=== PATIENT | male | born 1990 | race Caucasian/White ===

== ENCOUNTER 2021-03-30 11:21 | Inpatient (IN) | payer OTHER ==
[2021-03-30 12:13] LABS: Basophils # (A) 0.1 k/uL (0-0.2); Basophils % (A) 1 %; Eosinophils # (A) 0.4 k/uL (0-0.7); Eosinophils % (A) 3 %; HCT 45.5 % (39.0-53.0); HGB 16.2 gm/dL (13.0-17.5); Lymphocytes # (A) 2.3 k/uL (1.0-4.8); Lymphocytes % (A) 17 %; MCH 28.8 pg (25.0-35.0); MCHC 35.7 g/dL (31.0-37.0); MCV 80.7 fL (80.0-100.0); Mean Platelet Volume 7.2; Monocytes # (A) 0.6 k/uL (0-1.0); Monocytes % (A) 5 %; Neutrophils # (A) 10.4 k/uL (1.3-7.7); Neutrophils % (A) 75 %; Platelet Count 226 k/uL (150-450); RBC 5.63 m/uL (4.30-5.90); WBC 13.9 k/uL (3.8-10.6)
[2021-03-30 12:22] LABS: ALT 49 U/L (4-49); AST 37 U/L (17-59); African American GFR (CKD) >90 (>60 ml/min/1.73 sqM); Albumin 4.9 g/dL (3.5-5.0); Alkaline Phosphatase 71 U/L (38-126); Amylase 51 U/L (30-110); Anion Gap 9 mmol/L; Blood Urea Nitrogen 20 mg/dL (9-20); Calcium 9.7 mg/dL (8.4-10.2); Carbon Dioxide 25 mmol/L (22-30); Chloride 105 mmol/L (98-107); Glucose 107 mg/dL (74-99); Lipase 39 U/L (23-300); Non-African American GFR(CKD) >90 (>60 ml/min/1.73 sqM); Potassium 4.4 mmol/L (3.5-5.1); Sodium 139 mmol/L (137-145); Total Bilirubin 0.7 mg/dL (0.2-1.3); Total Protein 8.1 g/dL (6.3-8.2)
[2021-03-30 12:26] LABS: Amorphous Sediment,Urine Occasional /hpf; Appearance,Urine Cloudy (Clear); Bilirubin,Urine Negative (Negative); Blood,Urine Trace (Negative); Color,Urine Yellow; Glucose,Urine (UA) Negative (Negative); Ketones,Urine Negative (Negative); Leukocyte Esterase,Urine Negative (Negative); Mucus,Urine Moderate /hpf; Nitrite,Urine Negative (Negative); PH, Urine 5.5 (5.0-8.0); Protein,Urine 1+ (Negative); RBC,Urine 1 /hpf (0-5); Specific Gravity,Urine 1.043 (1.001-1.035); Squamous Epithelial Cell,Urine <1 /hpf (0-4); Urobilinogen,Urine <2.0 mg/dL (<2.0); WBC,Urine 2 /hpf (0-5)
[2021-03-30] MEDS ORDERED: SODIUM CHLORIDE 0.9% 1,000 ML IV STA (12:41)
[2021-03-30] MEDS ORDERED: KETOROLAC 15 MG/ML 1 ML VIAL IVP STA (12:42)
[2021-03-30] MEDS ORDERED: ONDANSETRON 4 MG/2 ML VIAL IVP STA (12:42)
--- NOTE | 2021-03-30 13:21 | CT ---
EXAMINATION TYPE: CT abdomen pelvis w con DATE OF EXAM: 03/30/2021 COMPARISON: None HISTORY: Right lower quadrant pain with nausea and vomiting. CT DLP: 1511.2 mGycm, Automated Exposure Control for Dose Reduction was Utilized. CONTRAST: CT scan of the abdomen and pelvis is performed without oral and with IV Contrast, patient injected wi th 100 mL of Isovue 300. FINDINGS: LUNG BASES: No significant abnormality is appreciated. LIVER/GB: No significant abnormality is appreciated. PANCREAS: No significant abnormality is seen. SPLEEN: No significant abnormality is seen. ADRENALS: No significant abnormality is seen. KIDNEYS: Symmetric cortical medullary uptake and excretion without hydronephrosis seen bilaterally. BOWEL: Terminal ileum identified near coronal image 40 appears within normal limits. There is appendi colith at base of cecum axial image 44. Appendix extends posteriorly and inferiorly and is abnormally dilated up to 16 mm axial image 47 with mild to moderate ill-defined fluid and fat stranding. Smalle r appendicolith near the tip is present coronal image 53. No adjacent free air. No well-formed fluid collection or abscess. PROSTATE/SEMINAL VESICLES: No gross abnormality seen. LYMPH NODES: No greater than 1cm abdominal or pelvic lymph nodes are appreciated. OSSEOUS STRUCTURES: Slight underlying levoconvex scoliotic curvature centered at L3 level. Mild facet arthropathy lower lumbar spine. OTHER: Tiny fat-containing umbilical hernia . IMPRESSION: CT findings consistent with a mild to moderate uncomplicated acute appendicitis as detail ed above. Findings discussed with the ordering emergency room physician diet assistant via telephone at time of dict ation.
[2021-03-30] MEDS ORDERED: NALOXONE 0.4 MG/ML 1 ML VIAL IV PRN (13:33)
[2021-03-30] MEDS ORDERED: PIPERACILLIN-TAZOBACTAM 3.375 GM in SODIUM CHLORIDE 0.9% 100 ML IVPB STA (13:34)
--- NOTE | 2021-03-30 13:38 | ED ---
Abdominal Pain HPI - General Chief Complaint: Abdominal Pain Stated Complaint: rt sided pain Time Seen by Provider: 03/30/21 12:28 Source: patient Mode of arrival: ambulatory Limitations: no limitations - History of Present Illness Initial Comments: Patient is a 30-year-old male presenting to the emergency Department with complaints of worsening abdominal pain since yesterday. He states he's had a few episodes of vomiting as well. He describes the pain as mostly in the right side of his abdomen, seems to be fairly consistent. He has never had pain like this before. Denies history of kidney stones, no hematuria. He denies any fevers or chills, no diarrhea, regular bowel movements. He denies any previous abdominal surgeries. He denies taking any medications. He is an occasional marijuana smoker, occasional alcohol drinker. He has no further complaints at this time. Upon arrival to the ER, his vitals are stable. - Related Data Home Medications Medication Instructions Recorded Confirmed Acetaminophen [Tylenol] 1,000 mg PO ONCE PRN 03/30/21 03/30/21 Cpm/PE/Dm/Acetaminophen/Guaifn 1 tab PO ONCE PRN 03/30/21 03/30/21 [Tylenol Cold-Flu Day-Nt Caplet] Allergies Allergy/AdvReac Type Severity Reaction Status Date / Time No Known Allergies Allergy Verified 03/30/21 13:30 Review of Systems ROS Statement: Those systems with pertinent positive or pertinent negative responses have been documented in the HPI. ROS Other: All systems not noted in ROS Statement are negative. Past Medical History Past Medical History: No Reported History History of Any Multi-Drug Resistant Organisms: None Reported Past Surgical History: No Surgical Hx Reported Past Psychological History: No Psychological Hx Reported Smoking Status: Never smoker Past Alcohol Use History: Occasional Past Drug Use History: Marijuana General Exam - General Exam Comments Initial Comments: GENERAL: Patient is well-developed and well-nourished. Patient is nontoxic and in no acute distress. HEAD: Atraumatic, normocephalic. EYES: Pupils equal round and reactive to light, extraocular movements intact, sclera anicteric, conjunctiva are normal. Eyelids were unremarkable. ENT: TMs normal, nares patent, oropharynx clear without exudates. Moist mucous membranes. NECK: Normal range of motion, supple without lymphadenopathy or JVD. LUNGS: Unlabored respirations. Breath sounds clear to auscultation bilaterally and equal. No wheezes rales or rhonchi. HEART: Regular rate and rhythm without murmurs, rubs or gallops. ABDOMEN: Soft, tender to palpation of the right side of the abdomen, right lower quadrant, normoactive bowel sounds. No guarding, no rebound. No masses appreciated. : Deferred MUSCULOSKELETAL: Normal extremities with adequate strength and normal range of motion, no pitting or edema. No clubbing or cyanosis. NEUROLOGICAL: Patient is alert and oriented x 3. Motor and sensory are also intact. Cranial nerves II through XII grossly intact. Symmetrical smile. Normal speech, normal gait. PSYCH: Normal mood, normal affect. SKIN: Warm, Dry, normal turgor, no rashes or lesions noted. Limitations: no limitations Course Vital Signs 03/30/21 03/30/21 03/30/21 11:30 12:51 14:08 Temperature 97.9 F 98.4 F Pulse Rate 70 60 64 Respiratory 18 18 18 Rate Blood Pressure 145/88 154/94 132/83 O2 Sat by Pulse 99 100 100 Oximetry Medical Decision Making - Medical Decision Making Patient is a 30-year-old male here for right-sided abdominal pain 2 days as well as nausea and vomiting. No fevers, his vital signs are stable upon arrival. He is tender in the right side of the abdomen, right lower quadrant. Patient's labs show a white count of 13.9, rest of labs are normal. Urine shows no evidence of infection. CT of the abdomen shows findings consistent with mild to moderate uncomplicated acute appendicitis. Patient received fluids, Toradol and Zofran, he is comfortable at this time. I discussed these findings with the patient. Patient will be started on antibiotics. Patient accepted by Dr. Mack. Patient last ate some oatmeal at approximately 8:30 this morning, n othing else to eat or drink today. Case discussed with Dr. Da Silva. - Lab Data Result diagrams: 03/30/21 11:47 03/30/21 11:47 Lab Results 03/30/21 03/30/21 03/30/21 Range/Units 11:47 11:47 11:47 WBC 13.9 H (3.8-10.6) k/uL RBC 5.63 (4.30-5.90) m/uL Hgb 16.2 (13.0-17.5) gm/dL Hct 45.5 (39.0-53.0) % MCV 80.7 (80.0-100.0) fL MCH 28.8 (25.0-35.0) pg MCHC 35.7 (31.0-37.0) g/dL RDW 13.0 (11.5-15.5) % Plt Count 226 (150-450) k/uL MPV 7.2 Neutrophils % 75 % Lymphocytes % 17 % Monocytes % 5 % Eosinophils % 3 % Basophils % 1 % Neutrophils # 10.4 H (1.3-7.7) k/uL Lymphocytes # 2.3 (1.0-4.8) k/uL Monocytes # 0.6 (0-1.0) k/uL Eosinophils # 0.4 (0-0.7) k/uL Basophils # 0.1 (0-0.2) k/uL Sodium 139 (137-145) mmol/L Potassium 4.4 (3.5-5.1) mmol/L Chloride 105 (98-107) mmol/L Carbon Dioxide 25 (22-30) mmol/L Anion Gap 9 mmol/L BUN 20 (9-20) mg/dL Creatinine 0.77 (0.66-1.25) mg/dL Est GFR (CKD-EPI)AfAm >90 (>60 ml/min/1.73 sqM) Est GFR (CKD-EPI)NonAf >90 (>60 ml/min/1.73 sqM) Glucose 107 H (74-99) mg/dL Calcium 9.7 (8.4-10.2) mg/dL Total Bilirubin 0.7 (0.2-1.3) mg/dL AST 37 (17-59) U/L ALT 49 (4-49) U/L Alkaline Phosphatase 71 (38-126) U/L Total Protein 8.1 (6.3-8.2) g/dL Albumin 4.9 (3.5-5.0) g/dL Amylase 51 (30-110) U/L Lipase 39 (23-300) U/L Urine Color Yellow Urine Appearance Cloudy (Clear) Urine pH 5.5 (5.0-8.0) Ur Specific [place] 1.043 H (1.001-1.035) Urine Protein 1+ H (Negative) Urine Glucose (UA) Negative (Negative) Urine Ketones Negative (Negative) Urine Blood Trace H (Negative) Urine Nitrite Negative (Negative) Urine Bilirubin Negative (Negative) Urine Urobilinogen <2.0 (<2.0) mg/dL Ur Leukocyte Esterase Negative (Negative) Urine RBC 1 (0-5) /hpf Urine WBC 2 (0-5) /hpf Ur Squamous Epith Cells <1 (0-4) /hpf Amorphous Sediment Occasional H (None) /hpf Urine Mucus Moderate H (None) /hpf Disposition Clinical Impression: Acute appendicitis Disposition: ADMITTED IP TO THIS HOSP Condition: Stable Decision Date: 03/30/21 Decision Time: 13:38
--- NOTE | 2021-03-30 13:56 | P.GSHP ---
History of Present Illness H&P Date: 03/30/21 CHIEF COMPLAINT: Abdominal pain HISTORY OF PRESENT ILLNESS: This is a 30-year-old male with no severe past medical history. He presents to the hospital with complaints of abdominal pain that started yesterday. Patient reports that his pain was throughout the abdomen but more severe in the right lower quadrant. He had 2 episodes of vomiting. Denies any change in bowel habits or urinary symptoms. Denies any fever, chills or sweats. He had computed tomography scan abdomen and pelvis with findings consistent of mild to moderate uncomplicated acute appendicitis. White count elevated at 13.9. Patient given a dose of IV Zosyn in ER. PAST MEDICAL HISTORY: See list. PAST SURGICAL HISTORY: See list. MEDICATIONS: See list. ALLERGIES: See list. SOCIAL HISTORY: No illicit drug use. REVIEW OF SYSTEMS: CONSTITUTIONAL: Denies fever or chills. HEENT: Denies blurred vision, vision changes, or eye pain. Denies hemoptysis CARDIOVASCULAR: Denies chest pain or pressure. RESPIRATORY: No shortness of breath. GASTROINTESTINAL: See HPI for pertinent findings HEMATOLOGIC: Denies bleeding disorders. GENITOURINARY: Denies any blood in urine or increased urinary frequency. SKIN: Denies pruitis. Denies rash. PHYSICAL EXAM: VITAL SIGNS: Reviewed GENERAL: Well-developed in no acute distress. HEENT: No sclera icterus. Extraocular movements grossly intact. Moist buccal mucosa. Head is atraumatic, normocephalic. No nasal drainage. ABDOMEN: Soft. Nondistended. Right lower quadrant tenderness with palpation NEUROLOGIC: Alert and oriented. Cranial nerves II through XII grossly intact. LABORATORY DATA: WBC 13.9 hemoglobin 16.2 platelets 226 creatinine 0.77 LFTs normal lipase normal UA no evidence of infection IMAGING: computed tomography scan abdomen and pelvis with findings consistent of mild to moderate uncomplicated acute appendicitis. ASSESSMENT: 1. Acute appendicitis PLAN: -Patient scheduled for laparoscopic appendectomy today with Dr. Mack -Keep patient nothing by mouth -Continue pain medication as needed -Continue Zofran as needed -Continue IV fluids Physician Integration Technician note has been reviewed by physician. Signing provider agrees with the documented findings, assessment, and plan of care. Past Medical History Past Medical History: No Reported History History of Any Multi-Drug Resistant Organisms: None Reported Past Surgical History: No Surgical Hx Reported Past Psychological History: No Psychological Hx Reported Smoking Status: Never smoker Past Alcohol Use History: Occasional Past Drug Use History: Marijuana Medications and Allergies Home Medications Medication Instructions Recorded Confirmed Type Acetaminophen [Tylenol] 1,000 mg PO ONCE PRN 03/30/21 03/30/21 History Cpm/PE/Dm/Acetaminophen/Guaifn 1 tab PO ONCE PRN 03/30/21 03/30/21 History [Tylenol Cold-Flu Day-Nt Caplet] Allergies Allergy/AdvReac Type Severity Reaction Status Date / Time No Known Allergies Allergy Verified 03/30/21 13:30 Surgical - Exam Vital Signs Temp Pulse Resp BP Pulse Ox 97.9 F 70 18 145/88 99 03/30/21 11:30 03/30/21 11:30 03/30/21 11:30 03/30/21 11:30 03/30/21 11:30 Results - Labs 03/30/21 11:47 03/30/21 11:47 Abnormal Lab Results - Last 24 Hours (Table) 03/30/21 03/30/21 03/30/21 Range/Units 11:47 11:47 11:47 WBC 13.9 H (3.8-10.6) k/uL Neutrophils # 10.4 H (1.3-7.7) k/uL Glucose 107 H (74-99) mg/dL Ur Specific [place] 1.043 H (1.001-1.035) Urine Protein 1+ H (Negative) Urine Blood Trace H (Negative) Amorphous Sediment Occasional H (None) /hpf Urine Mucus Moderate H (None) /hpf Diabetes panel 03/30/21 Range/Units 11:47 Sodium 139 (137-145) mmol/L Potassium 4.4 (3.5-5.1) mmol/L Chloride 105 (98-107) mmol/L Carbon Dioxide 25 (22-30) mmol/L BUN 20 (9-20) mg/dL Creatinine 0.77 (0.66-1.25) mg/dL Glucose 107 H (74-99) mg/dL Calcium 9.7 (8.4-10.2) mg/dL AST 37 (17-59) U/L ALT 49 (4-49) U/L Alkaline Phosphatase 71 (38-126) U/L Total Protein 8.1 (6.3-8.2) g/dL Albumin 4.9 (3.5-5.0) g/dL Calcium panel 03/30/21 Range/Units 11:47 Calcium 9.7 (8.4-10.2) mg/dL Albumin 4.9 (3.5-5.0) g/dL Pituitary panel 03/30/21 Range/Units 11:47 Sodium 139 (137-145) mmol/L Potassium 4.4 (3.5-5.1) mmol/L Chloride 105 (98-107) mmol/L Carbon Dioxide 25 (22-30) mmol/L BUN 20 (9-20) mg/dL Creatinine 0.77 (0.66-1.25) mg/dL Glucose 107 H (74-99) mg/dL Calcium 9.7 (8.4-10.2) mg/dL Adrenal panel 03/30/21 Range/Units 11:47 Sodium 139 (137-145) mmol/L Potassium 4.4 (3.5-5.1) mmol/L Chloride 105 (98-107) mmol/L Carbon Dioxide 25 (22-30) mmol/L BUN 20 (9-20) mg/dL Creatinine 0.77 (0.66-1.25) mg/dL Glucose 107 H (74-99) mg/dL Calcium 9.7 (8.4-10.2) mg/dL Total Bilirubin 0.7 (0.2-1.3) mg/dL AST 37 (17-59) U/L ALT 49 (4-49) U/L Alkaline Phosphatase 71 (38-126) U/L Total Protein 8.1 (6.3-8.2) g/dL Albumin 4.9 (3.5-5.0) g/dL
[2021-03-30] MEDS: SODIUM CHLORIDE 0.9% 1,000 ML IV SCH (14:10)
[2021-03-30] MEDS: MORPHINE SULFATE 4 MG/ML SYRINGE IV PRN (15:53)
[2021-03-30] MEDS ORDERED: IV FLUID CONTINUATION 800 ML IV ONE (15:59)
[2021-03-30] MEDS ORDERED: HEPARIN SODIUM,PORCINE/PF 5,000 UNIT/0.5 ML SYRINGE SQ ONE (16:41)
[2021-03-30] MEDS ORDERED: HEPARIN SODIUM,PORCINE 5,000 UNIT/ML 1 ML VIAL SQ ONE (16:45)
[2021-03-30] MEDS ORDERED: DEXAMETHASONE SOD PHOSPHATE 4 MG/ML 1 ML VIAL IV ONE ×2 (16:46→16:50)
[2021-03-30] MEDS ORDERED: ONDANSETRON 4 MG/2 ML VIAL IVP ONE ×2 (16:46→16:50)
[2021-03-30] MEDS ORDERED: SUCCINYLCHOLINE CHLORIDE 100 MG/5 ML SYR IV ONE (16:59)
[2021-03-30] MEDS ORDERED: ROCURONIUM 10 MG/ML (5 ML VIAL) IV ONE (16:59)
[2021-03-30] MEDS ORDERED: KETOROLAC 15 MG/ML 1 ML VIAL ONE (16:59)
[2021-03-30] MEDS ORDERED: MIDAZOLAM 2 MG/2 ML VIAL ONE (16:59)
[2021-03-30] MEDS ORDERED: fentaNYL (PF) 50 MCG/ML 2 ML AMP ONE (16:59)
[2021-03-30] MEDS ORDERED: LIDOCAINE 1% INJ 10MG/ML (20 ML MDV) ONE (16:59)
[2021-03-30] MEDS ORDERED: NEOSTIGMINE 1 MG/ML 10 ML VIAL ONE (16:59)
[2021-03-30] MEDS ORDERED: GLYCOPYRROLATE 0.2 MG/ML 2 ML VIAL ONE (16:59)
[2021-03-30] MEDS ORDERED: HYDROmorphone (PF) 1 MG/ML ONE (16:59)
[2021-03-30] MEDS ORDERED: PROPOFOL 10 MG/ML 20 ML VIAL IV ONE (16:59)
[2021-03-30] MEDS ORDERED: LIDOCAINE 1%-EPI 1:100,000 20 ML VIAL SQ ONE (17:23)
--- NOTE | 2021-03-30 17:51 | P.OP ---
Date of Procedure: 03/30/21 Preoperative Diagnosis: acute appendicitis Postoperative Diagnosis: acute appendicitis Procedure(s) Performed: laparoscopic appendectomy Anesthesia: ELSA Surgeon: Damian Mack Estimated Blood Loss (ml): 5 Pathology: other (appendix) Condition: stable Disposition: PACU Description of Procedure: The patient's placed on the operating table in the supine position. The patient received general anesthesia. The abdomen was prepped and draped in the usual sterile fashion. The skin was anesthetized 1% local Xylocaine at the trocar sites. Using an 11 blade the skin was incised at the umbilicus. The umbilicus was grasped with a Raeford clamp and then a Veress needle was placed into the peritoneal cavity. Position of the Veress needle was confirmed with positive drop test. After adequate insufflation a 5 mm trocar was placed into the peritoneal cavity. The abdomen was further insufflated. And then the laparoscope was placed in the peritoneal cavity. Next a 5 mm trocar was placed in the midline suprapubic position. And then a 10 mm trocar was placed in the midline epigastric position. The patient was rotated with the right side up and in Trendelenburg. The appendix was visualized. The appendix appeared to be inflamed. there was evidence of microperforation of the appendixThe appendix was grasped and then using the Harmonic scissors the mesoappendix was divided. A PDS Endoloop was then placed around the base of the appendix. And then the appendix was divided using Harmonic scissors. The appendix was placed into an Endo Catch and brought out through the 10 mm trocar site. The abdomen was irrigated. There is no bleeding seen. The trochars withdrawn. The skin was closed interrupted 3-0 Monocryl suture. Dermabond dressing was applied. Patient was sent to recovery room in stable condition.
[2021-03-30] MEDS ORDERED: HYDROmorphone 0.5 MG/0.5 ML SYRINGE IVP ONE (18:14)
[2021-03-30] MEDS ORDERED: SODIUM CHLORIDE 0.9% 1,000 ML IV ONE (18:48)
[2021-03-31] MEDS: KETOROLAC 15 MG/ML 1 ML VIAL IVP PRN ×2 (01:30→06:12)
[2021-03-31] MEDS: SODIUM CHLORIDE 0.9% 1,000 ML IV SCH ×2 (01:32→16:36)
[2021-03-31] MEDS: ACETAMINOPHEN TAB 325 MG TAB PO PRN ×3 (05:58→20:43)
[2021-03-31] MEDS: ENOXAPARIN 40 MG/0.4 ML SYRINGE SQ SCH (08:49)
[2021-03-31] MEDS: HYDROmorphone 1 MG/ML 1 ML SYRINGE IVP PRN ×2 (10:39→18:21)
[2021-03-31] MEDS ORDERED: SODIUM CHLORIDE 0.9% 1,000 ML IV ONE (15:41)
[2021-03-31] MEDS: PIPERACILLIN-TAZOBACTAM 3.375 GM in SODIUM CHLORIDE 0.9% 100 ML IVPB SCH ×2 (16:36→23:24)
[2021-03-31] MEDS: IBUPROFEN 600 MG TAB PO PRN (23:24)
[2021-03-31] MEDS: MORPHINE SULFATE 4 MG/ML SYRINGE IV PRN (23:24)
[2021-04-01] MEDS: SODIUM CHLORIDE 0.9% 1,000 ML IV SCH ×2 (05:36→16:13)
[2021-04-01] MEDS: ENOXAPARIN 40 MG/0.4 ML SYRINGE SQ SCH (08:21)
[2021-04-01] MEDS: PIPERACILLIN-TAZOBACTAM 3.375 GM in SODIUM CHLORIDE 0.9% 100 ML IVPB SCH ×3 (08:22→23:15)
[2021-04-01] MEDS: ONDANSETRON 4 MG/2 ML VIAL IVP PRN ×2 (10:06→19:16)
[2021-04-01] MEDS: KETOROLAC 15 MG/ML 1 ML VIAL IVP PRN (10:10)
--- NOTE | 2021-04-01 11:00 | P.PN ---
Progress Note - Text Progress Note Date: 04/01/21 Patient still has issues with intermittent fevers. He doesn't feel well. On exam vital signs are stable. Abdomen soft. Incision sites are clean and intact. Status post laparoscopic appendectomy for appendicitis with perforation. Patient will receive IV antibiotic. We will repeat his labs today.
[2021-04-01 11:35] LABS: Basophils % (A) 0 %; Eosinophils # (A) 0.1 k/uL (0-0.7); Eosinophils % (A) 1 %; HCT 43.4 % (39.0-53.0); HGB 14.9 gm/dL (13.0-17.5); Lymphocytes # (A) 1.1 k/uL (1.0-4.8); Lymphocytes % (A) 7 %; MCH 28.6 pg (25.0-35.0); MCHC 34.4 g/dL (31.0-37.0); MCV 83.2 fL (80.0-100.0); Mean Platelet Volume 7.5; Monocytes # (A) 0.6 k/uL (0-1.0); Monocytes % (A) 4 %; Neutrophils # (A) 14.6 k/uL (1.3-7.7); Neutrophils % (A) 88 %; Platelet Count 185 k/uL (150-450); RBC 5.22 m/uL (4.30-5.90); RDW 13.3 % (11.5-15.5); WBC 16.6 k/uL (3.8-10.6)
--- NOTE | 2021-04-01 11:40 | XR ---
EXAMINATION TYPE: XR chest 1V portable DATE OF EXAM: 04/01/2021 COMPARISON: NONE HISTORY: Fever TECHNIQUE: Single frontal view of the chest is obtained. FINDINGS: There is bibasilar infiltrate and small effusion. Limited inspiration. Heart size normal. No pneumothorax IMPRESSION: Bibasilar infiltrate.
[2021-04-01 11:47] LABS: ALT 25 U/L (4-49); African American GFR (CKD) >90 (>60 ml/min/1.73 sqM); Albumin 3.9 g/dL (3.5-5.0); Albumin/Globulin Ratio 1.2; Anion Gap 9 mmol/L; Blood Urea Nitrogen 14 mg/dL (9-20); Calcium 8.9 mg/dL (8.4-10.2); Carbon Dioxide 23 mmol/L (22-30); Chloride 107 mmol/L (98-107); Globulin 3.2 g/dL; Glucose 119 mg/dL (74-99); Non-African American GFR(CKD) >90 (>60 ml/min/1.73 sqM); Sodium 139 mmol/L (137-145); Total Bilirubin 1.3 mg/dL (0.2-1.3); Total Protein 7.1 g/dL (6.3-8.2)
[2021-04-01 11:50] LABS: AST 28 U/L (17-59); Alkaline Phosphatase 52 U/L (38-126)
[2021-04-01 12:41] LABS: Amorphous Sediment,Urine Many /hpf; Appearance,Urine Turbid (Clear); Bilirubin,Urine Negative (Negative); Blood,Urine Small (Negative); Color,Urine Yellow; Glucose,Urine (UA) Trace (Negative); Hyaline Casts,Urine 1 /lpf (0-2); Ketones,Urine 2+ (Negative); Leukocyte Esterase,Urine Negative (Negative); Mucus,Urine Occasional /hpf; Nitrite,Urine Negative (Negative); Protein,Urine 2+ (Negative); RBC,Urine 2 /hpf (0-5); Specific Gravity,Urine 1.034 (1.001-1.035); Urobilinogen,Urine <2.0 mg/dL (<2.0); WBC,Urine 2 /hpf (0-5)
[2021-04-01] MEDS: MORPHINE SULFATE 4 MG/ML SYRINGE IV PRN ×3 (13:25→23:15)
--- NOTE | 2021-04-01 14:30 | CT ---
EXAMINATION TYPE: CT chest angio for PE DATE OF EXAM: 04/01/2021 COMPARISON: None HISTORY: SOB CT DLP: 471.20 mGycm Automated exposure control for dose reduction was used. CONTRAST: Performed with IV Contrast, patient injected with 100ml mL of Isovue 370. Images obtained from the thoracic inlet to the diaphragm with IV contrast. There are 3-D post processed images. There is some patchy atelectasis at the lung bases. There is small right pleural effusion. There is a lso some mild right middle lobe atelectasis. There is poor inspiration. There is diffuse fatty infilt ration of the liver. Heart appears borderline enlarged. There are no hilar masses. There is no mediastinal adenopathy. The thoracic aorta appears intact. There is no aneurysm or dissection. The ascending aorta measures 3.6 cm. There is no evidence of filling defect in the pulmonary arteries. Thoracic vertebra have normal alignment. There is no compression fracture. Sternum is intact. The rib s appear intact. IMPRESSION: No evidence of pulmonary embolism. Borderline cardiomegaly. Interstitial infiltrates and atelectasis at both lung bases with small right pleural effusion.
[2021-04-01] MEDS: ACETAMINOPHEN TAB 325 MG TAB PO PRN (14:32)
[2021-04-01] MEDS ORDERED: IPRATROPIUM-ALBUTEROL 3 ML NEB INHALATION PRN (14:49)
[2021-04-01] MEDS: IPRATROPIUM-ALBUTEROL 3 ML NEB INHALATION SCH (21:36)
--- NOTE | 2021-04-01 22:18 | CONS ---
CONSULTATION DATE OF SERVICE: 04/01/2021 REASON FOR CONSULTATION: Advice regarding fever and other multiple medical issues, requested by Dr. Mack. HISTORY OF PRESENT ILLNESS: This is a 30-year-old gentleman with a past medical history of no significant medical illness was complaining of abdominal pain. The patient had laparoscopic appendectomy by Dr. Mack. The patient is complaining of some persistent fevers and some shortness of breath, with difficulty in breathing also. Recommended chest x-ray which showed some bibasilar infiltrate. The patient also had a D-dimer which was 4.26 and the patient also underwent a chest CTA which showed no evidence of pulmonary embolism and bilateral infiltrates are noted, suggestive of pneumonia. The patient admitted for further evaluation and treatment. There is no history any headache, loss of consciousness, seizures. Occasional cough is reported at this time. PAST MEDICAL HISTORY: No history of significant cardiovascular illness. MEDICATIONS: Home medications are: Tylenol p.r.n. ALLERGIES: None. FAMILY HISTORY: No history of heart disease or strokes. SOCIAL HISTORY: Occasional alcohol and THC. REVIEW OF SYSTEMS: ENT: No diminished vision. No diminished hearing. CARDIOVASCULAR system as mentioned earlier. RESPIRATORY: As mentioned earlier. GI no nausea or vomiting. : No dysuria. NERVOUS SYSTEM: No numbness, weakness. ALLERGY/IMMUNOLOGY: No asthma or hayfever. MUSCULOSKELETAL: As mentioned earlier. HEMATOLOGY/ONCOLOGY: No history of anemia. ENDOCRINE: No history of diabetes or hypothyroidism. CONSTITUTIONAL: As mentioned earlier. DERMATOLOGY: Negative. RHEUMATOLOGICAL: Negative. PSYCHIATRIC: As mentioned earlier. PHYSICAL EXAMINATION: Alert and oriented x3. Pulse is 103. Blood pressure is 113/72, respirations 18, temperature 101.6, pulse ox 97% on room air. HEENT: Conjunctivae normal. NECK: No JVD. CARDIOVASCULAR: S1, S2 muffled. RESPIRATORY: Breath sounds diminished in the bases. A few scattered rhonchi. No crackles. ABDOMEN: Soft. Status post surgery. LEGS: No edema. No swelling. NERVOUS SYSTEM: Higher functions as mentioned earlier. Moves all four limbs. No focal motor or sensory deficits. LYMPHATICS: No lymph nodes palpable in the neck, axillae or groin. SKIN: No ulcer, rash or bleeding. JOINTS: No active deforming arthropathy. LABS: At this time shows WBC 16.6 and D-dimer is 4.26. UA noted. ASSESSMENT: 1. Acute appendicitis status post laparoscopic appendectomy. 2. Bibasilar pneumonia, possibly gram-negative. 3. Increased WBC. 4. Elevated D-dimer without any evidence of pulmonary embolism. RECOMMENDATIONS AND DISCUSSION: This 30-year-old gentleman who presented with multiple complex medical issues, we will monitor the patient closely, continue the current medications, management and symptomatic treatment. Continue with broad-spectrum IV antibiotics. I would recommend add incentive spirometer, bronchodilators. We will follow the patient closely. The cultures also will be obtained and DVT prophylaxis. A copy of this dictation being forwarded to Dr. Benites and Dr. Botello, who is the primary physician. Thank you Dr. Mack for letting us participate in the care of this patient. MMODL / IJN: [id number] /
[2021-04-01] MEDS: IBUPROFEN 600 MG TAB PO PRN (23:15)
[2021-04-02] MEDS: ACETAMINOPHEN TAB 325 MG TAB PO PRN (02:27)
[2021-04-02] MEDS: IPRATROPIUM-ALBUTEROL 3 ML NEB INHALATION SCH ×3 (07:38→19:32)
[2021-04-02] MEDS: ENOXAPARIN 40 MG/0.4 ML SYRINGE SQ SCH (08:01)
[2021-04-02] MEDS: PIPERACILLIN-TAZOBACTAM 3.375 GM in SODIUM CHLORIDE 0.9% 100 ML IVPB SCH ×2 (08:01→16:22)
[2021-04-02 10:48] LABS: Basophils # (A) 0.03 X 10*3/uL (0.00-0.10); Basophils % (A) 0.2 %; Eosinophils # (A) 0 X 10*3/uL (0.04-0.35); Eosinophils % (A) 0 %; HCT 40.4 % (39.6-50.0); HGB 13.5 g/dL (13.0-17.0); Lymphocytes # (A) 1.16 X 10*3/uL (0.90-5.00); Lymphocytes % (A) 8.9 %; MCHC 33.4 g/dL (32.0-37.0); MCV 83.8 fL (80.0-97.0); Mean Platelet Volume 10.3 fL (9.5-12.2); Monocytes # (A) 0.81 X 10*3/uL (0.20-1.00); Monocytes % (A) 6.2 %; Neutrophils # (A) 11.01 X 10*3/uL (1.80-7.70); Neutrophils % (A) 84.1 %; Platelet Count 202 X 10*3/uL (140-440); RBC 4.82 X 10*6/uL (4.40-5.60); RDW 13.7 % (11.5-14.5); WBC 13.09 X 10*3/uL (4.50-10.00)
[2021-04-02] MEDS: MORPHINE SULFATE 4 MG/ML SYRINGE IV PRN (10:49)
[2021-04-02] MEDS: ONDANSETRON 4 MG/2 ML VIAL IVP PRN ×2 (10:49→19:24)
[2021-04-02] MEDS ORDERED: HYDROcodone/APAP 5-325MG 1 EACH TAB PO PRN (11:52)
[2021-04-02] MEDS: SODIUM CHLORIDE 0.9% 1,000 ML IV SCH (13:26)
--- NOTE | 2021-04-02 14:44 | P.PN ---
Subjective Progress Note Date: 04/02/21 CHIEF COMPLAINT: Abdominal pain HISTORY OF PRESENT ILLNESS: Patient is status post laparoscopic appendectomy for an acute appendicitis with microperforation. Patient is complaining of abdominal pain. He has had diarrhea as well as nausea. Denies any vomiting. He did have a temp this morning around 2 AM of 102.5. Repeat temperature was 97.4. He is currently on IV Zosyn also on a regular diet. WBC is down from 16.6-13.09 chest CTA shows no evidence of pulmonary embolism. Borderline cardiomegaly. Interstitial infiltrates and atelectasis at both lung bases with small right pleural effusion. Medicine service has added updraft treatments. PHYSICAL EXAM: VITAL SIGNS: Reviewed. GENERAL: Well-developed in no acute distress. HEENT: No sclera icterus. Extraocular movements grossly intact. Moist buccal mucosa. Head is atraumatic, normocephalic. ABDOMEN: Soft. Nondistended. Minimal dry blood noted at incision site otherwise no evidence of infection no evidence of infection NEUROLOGIC: Alert and oriented. Cranial nerves II through XII grossly intact. ASSESSMENT: 1. Acute appendicitis with microperforation status post laparoscopic appendectomy. Postop day #3 2. Atelectasis PLAN: -Add [place] as needed for pain control -Continue regular diet continue -continue IV antibiotics -Encourage patient to ambulate -Encourage patient to use incentive spirometer -GI prophylaxis Protonix and DVT prophylaxis Lovenox Physician Kettle Operator Head note has been reviewed by physician. Signing provider agrees with the documented findings, assessment, and plan of care. Objective - Vital Signs Vital signs: Vital Signs Temp 98.4 F 04/02/21 10:46 Pulse 90 04/02/21 11:40 Resp 16 04/02/21 08:00 BP 131/79 04/02/21 08:00 Pulse Ox 96 04/02/21 08:00 Intake & Output 04/01/21 04/02/21 04/02/21 18:59 06:59 18:59 Intake Total 2725 1350 300 Balance 2725 1350 300 Intake: Intake, IV Titration 925 900 Amount Piperacillin-Tazobactam 3 100 .375 gm In Sodium Chloride 0.9% 100 ml @ 25 mls/hr IVPB Q8HR [facility] Rx# :[id number] Sodium Chloride 0.9% 1, 825 900 000 ml @ 75 mls/hr IV . [id number] [facility] Rx#:[id number] Oral 1800 450 300 Other: Voiding Method Toilet Toilet # Voids 8 2 # Bowel Movements 1 - Labs CBC & Chem 7: 04/02/21 07:42 04/01/21 11:00 Labs: Abnormal Lab Results - Last 24 Hours (Table) 04/02/21 Range/Units 07:42 WBC 13.09 H (4.50-10.00) X 10*3/uL Immature Gran # 0.08 H (0.00-0.04) X 10*3/uL Neutrophils # 11.01 H (1.80-7.70) X 10*3/uL Eosinophils # 0 L (0.04-0.35) X 10*3/uL
[2021-04-02] MEDS: PANTOPRAZOLE 40 MG TABLET PO SCH (16:22)
[2021-04-02] MEDS: HYDROmorphone 1 MG/ML 1 ML SYRINGE IVP PRN (18:16)
--- NOTE | 2021-04-02 21:13 | PN ---
PROGRESS NOTE DATE OF SERVICE: 04/02/2021. HISTORY: This 30-year-old gentleman who was admitted after acute appendicitis and appendectomy was running fever. The patient started on broad-spectrum IV antibiotics. The patient possibly developed possible pneumonia. The cultures are negative so far. The white count is still elevated at 13.9, and D-dimer is elevated. There is no history of any DVT. No chest pain. No palpitations or pulmonary embolism. No chest pain. No palpitations. No fever. PHYSICAL EXAMINATION: Alert and oriented x3. Pulse 90, blood pressure 136/81, respirations 18, temperature 98.2, pulse ox 97% on room air. HEENT: Conjunctivae normal. HEART: S1, S2 muffled. RESPIRATORY SYSTEM: Breath sounds diminished at the bases. Few scattered rhonchi. ABDOMEN: Soft status surgery. LEGS: No edema, no swelling. LABS: WBC 18.2, hemoglobin 13.5 UA noted. ASSESSMENT: 1. Acute appendicitis status post laparoscopic appendectomy. 2. Bibasilar pneumonia possibly gram-negative with fever, improving. 3. Increased WBC. 4. Elevated D-dimer without any evidence of acute pulmonary embolism. RECOMMENDATIONS AND DISCUSSION: I recommend to continue current management and continue symptomatic treatment. Continue the antibiotics and incentive spirometry. Continue bronchodilators. DVT prophylaxis. Will follow the patient closely with you. CANDACE / IJN: [id number] /
[2021-04-03] MEDS: MORPHINE SULFATE 4 MG/ML SYRINGE IV PRN ×3 (00:24→10:40)
[2021-04-03] MEDS: PIPERACILLIN-TAZOBACTAM 3.375 GM in SODIUM CHLORIDE 0.9% 100 ML IVPB SCH ×2 (00:25→08:28)
[2021-04-03] MEDS: SODIUM CHLORIDE 0.9% 1,000 ML IV SCH ×2 (00:26→13:48)
[2021-04-03] MEDS: IPRATROPIUM-ALBUTEROL 3 ML NEB INHALATION SCH ×2 (07:26→11:01)
[2021-04-03 07:47] VITALS: RESP 16
[2021-04-03] MEDS: ENOXAPARIN 40 MG/0.4 ML SYRINGE SQ SCH (08:28)
[2021-04-03] MEDS: PANTOPRAZOLE 40 MG TABLET PO SCH (08:28)
[2021-04-03 09:34] LABS: HCT 38.2 % (39.6-50.0); HGB 12.8 g/dL (13.0-17.0); MCH 28.1 pg (27.0-32.0); MCHC 33.5 g/dL (32.0-37.0); Mean Platelet Volume 10.8 fL (9.5-12.2); Platelet Count 223 X 10*3/uL (140-440); RBC 4.55 X 10*6/uL (4.40-5.60); RDW 13.7 % (11.5-14.5); WBC 10.37 X 10*3/uL (4.50-10.00)
[2021-04-03 10:41] LABS: African American GFR (CKD) 138.9 (60.0-200.0); Anion Gap 11.8 mmol/L (4.00-12.00); BUN/Creat Ratio 18.75 Ratio (12.00-20.00); Carbon Dioxide 25.2 mmol/L (21.6-31.8); Non-African American GFR(CKD) 119.9 (60.0-200.0); Potassium 3.1 mmol/L (3.5-5.5)
[2021-04-03] MEDS: ONDANSETRON 4 MG/2 ML VIAL IVP PRN (10:55)
[2021-04-03] MEDS ORDERED: HYDROcodone/APAP 7.5-325MG 1 EACH TAB PO PRN (11:23)
[2021-04-03 11:30] LABS: Basophils # (A) 0.04 X 10*3/uL (0.00-0.10); Basophils % (A) 0.4 %; Eosinophils # (A) 0.08 X 10*3/uL (0.04-0.35); Eosinophils % (A) 0.8 %; Lymphocytes # (A) 1.09 X 10*3/uL (0.90-5.00); Lymphocytes % (A) 10.5 %; Monocytes # (A) 0.82 X 10*3/uL (0.20-1.00); Monocytes % (A) 7.9 %
[2021-04-03 14:17] VITALS: BP 132/75; PULSE 88; TEMP 98.9
[2021-04-03] MEDS ORDERED: Magnesium Replacement Protocol 1 EACH MISC MISCELLANE PRN (15:07)
[2021-04-03] MEDS ORDERED: Potassium Replacement Protocol 1 EACH MISC MISCELLANE PRN (15:07)
--- NOTE | 2021-04-03 15:08 | P.DS ---
Providers Date of admission: 03/31/21 13:05 Attending physician: Damian Mack Consults: 04/01/21 11:01 Consult Physician Routine Consulting Provider: Sandhya Hale Consult Reason/Comments: Medical management Do you want consulting provider notified?: Yes Primary care physician: Amber Botello Hospital Course: Discharge diagnosis 1. Acute appendicitis with microperforation status post laparoscopic appe ndectomy 2. Bilateral pneumonia Hospital course This is a 30-year-old male who presented with abdominal pain and vomiting. Computed tomography scan had shown evidence of mild to moderate uncomplicated acute appendicitis. Patient underwent laparoscopic appendectomy for acute appendicitis and microperforation. Patient is tolerating diet. His pain is controlled. He is having bowel movements and flatus. He is afebrile. His white count has trended down. He is up and ambulating. Patient did have a chest x-ray showing bilateral infiltrates. He is being discharged home with antibiotics to cover the acute appendicitis with microperforation as well as pneumonia. He is stable for discharge. Please refer to chart for any further details. Physician Tapper [employer] note has been reviewed by physician. Signing provider agrees with the documented findings, assessment, and plan of care. Patient Condition at Discharge: Stable Plan - Discharge Summary Discharge Rx Participant: Yes New Discharge Prescriptions: New HYDROcodone/APAP 7.5-325MG [[place] 7.5-325] 1 tab PO Q4H PRN 3 Days #18 tab PRN Reason: Pain Ibuprofen [Motrin] 600 mg PO Q8HR PRN #30 tab PRN Reason: Pain metroNIDAZOLE [Flagyl] 500 mg PO TID #21 tab Levofloxacin [Levaquin] 500 mg PO DAILY 7 Days #7 tab Continue Cpm/PE/Dm/Acetaminophen/Guaifn [Tylenol Cold-Flu Day-Nt Caplet] 1 tab PO ONCE PRN PRN Reason: Cold Symptoms Discontinued Acetaminophen [Tylenol] 1,000 mg PO ONCE PRN PRN Reason: Fever And/ Or Pain Discharge Medication List Cpm/PE/Dm/Acetaminophen/Guaifn [Tylenol Cold-Flu Day-Nt Caplet] 1 tab PO ONCE PRN 03/30/21 [History] HYDROcodone/APAP 7.5-325MG [[place] 7.5-325] 1 tab PO Q4H PRN 3 Days #18 tab 06/08/21 [Rx] Ibuprofen [Motrin] 600 mg PO Q8HR PRN #30 tab 04/03/21 [Rx] Levofloxacin [Levaquin] 500 mg PO DAILY 7 Days #7 tab 04/03/21 [Rx] metroNIDAZOLE [Flagyl] 500 mg PO TID #21 tab 04/03/21 [Rx] Follow up Appointment(s)/Referral(s): Amber Botello MD [Primary Care Provider] - 1-2 days Damian Mack MD [STAFF PHYSICIAN] - 1 Week Activity/Diet/Wound Care/Special Instructions: No driving while taking [place] No lifting over 10 pounds You may shower. No soaking or tub baths for 2 weeks Very light activity until you are reevaluated at your follow up appointment with your surgeon Discharge Disposition: HOME SELF-CARE
--- NOTE | 2021-04-03 17:10 | PN ---
PROGRESS NOTE DATE OF SERVICE: 04/03/2021 INTERVAL HISTORY: This is a 30-year-old gentleman who was admitted after acute appendicitis and appendectomy had developed pneumonia. The patient is not doing very well with incentive spirometry at this time. No chest pain. No palpitations. No fever. Occasional cough is reported. Surgery is following the patient. Patient is on broad spectrum IV antibiotics. The cultures are negative so far. The white count is slightly elevated at 10.37, potassium 3.1. PHYSICAL EXAMINATION: GENERAL: Alert and oriented x3. VITAL SIGNS: The pulse is 88, blood pressure 130/74, respirations 16, temperature 98.9, pulse ox 97% on room air. HEENT: Conjunctivae normal. NECK: No jugular venous distention. No carotid bruits. RESPIRATORY: Breath sounds diminished at the bases. A few scattered rhonchi. HEART: S1 and S2, muffled. ABDOMEN: Soft, status post surgery. EXTREMITIES: No edema, no swelling. NERVOUS: No focal deficits. LABS: WBC 10.3 and hemoglobin 12.2, sodium 142, potassium 3.1. ASSESSMENT: 1. Acute appendicitis status post laparoscopic appendectomy. 2. Bibasilar pneumonia possibly gram-negative with fever. On broad-spectrum IV antibiotics, improving gradually. 3. Increased WBC. 4. Elevated D-dimer without any evidence of acute pulmonary embolism. 5. Mild hypokalemia. RECOMMENDATION AND DISCUSSION: In this 30-year-old gentleman who presented with multiple complex medical issues, we will monitor the patient closely. Continue the current medications, continue symptomatic treatment. I would recommend repeat lytes. Continue the antibiotic. DVT prophylaxis. Incentive spirometry. Bronchodilators. Guarded prognosis. Further recommendations to follow. MMODL / IJN: [id number] /
== END 2021-04-03 15:52 | disposition home or self-care (01) | DRG 338 ==
LOC: EC 11:21 → 6NMEDSUR 13:30 → OBSVTOIN 03-31 13:05
PROVIDERS: ADMIT Surgery; ATTEND Surgery
PROC: 0DTJ4ZZ Resection of Appendix, Percutaneous Endoscopic Approach (ICD-10-PCS; principal; 2021-03-30 09:20)
DX: K35.32 Acute appendicitis with perforation, localized peritonitis, and gangrene, without abscess (principal); J15.6 Pneumonia due to other Gram-negative bacteria; J98.11 Atelectasis; E87.6 Hypokalemia; R79.1 Abnormal coagulation profile; Z20.822 Contact with and (suspected) exposure to COVID-19
CPT/HCPCS: 36415; 71045; 71275; 74177; 80048; 80053; 81001; 82150; 83605; 83690; 85025; 85379; 87040; 87635; 88304; 94640; 96361; 96374; 96375; 99285

== ENCOUNTER → 2021-04-10 | Outpatient (CLI) | payer OTHER ==
--- NOTE | 2021-04-11 09:01 | XR ---
EXAMINATION TYPE: XR chest 2V DATE OF EXAM: 04/10/2021 COMPARISON: Chest x-ray 04/01/[address] 04/01/2021 HISTORY: Cough and chest pain TECHNIQUE: Frontal and lateral views of the chest are obtained. FINDINGS: Patchy basilar density is present on the right. The right hemidiaphragm remains elevated. Lung volumes are low. There is no evident pneumothorax, difficult to exclude small effusion. Cardiac mediastinal silhouette is stable. IMPRESSION: Basilar atelectasis, correlate to exclude pneumonia, difficult to exclude right pleural effusion
== END | disposition home or self-care (01) ==
LOC: RADXRYALE 16:11
PROVIDERS: ATTEND Internal Medicine
DX: J98.11 Atelectasis (principal)
CPT/HCPCS: 71046

== ENCOUNTER 2021-04-14 13:26 | Emergency (ER) | payer OTHER ==
[2021-04-14 13:31] VITALS: RESP 18
[2021-04-14] MEDS ORDERED: SODIUM CHLORIDE 0.9% 1,000 ML IV STA (14:08)
[2021-04-14] MEDS ORDERED: KETOROLAC 15 MG/ML 1 ML VIAL IVP STA (14:09)
--- NOTE | 2021-04-14 14:11 | ED ---
SOB HPI - General Chief Complaint: Shortness of Breath Stated Complaint: pain when breathing deeply Time Seen by Provider: 04/14/21 13:47 Source: patient Mode of arrival: ambulatory Limitations: no limitations - History of Present Illness Initial Comments: This is a 30-year-old male with a history of a laparoscopic appendectomy earlier this month who presents with complaints of intermittent episodes of sharp right- sided chest pain gets worse with certain movements and a breathing. Is more obvious at night. His been on-and-off. He states the pain is worse was 7/10 severity currently is 3/10 he denies any fevers chills nausea vomiting sweats cough or phlegm production. He states he did have a slight amount of fluid in the right lung on a previous x-ray he did have one done at his doctor's office this week he's not sure the results. He did present a disc with the x-ray on it from several days ago. MD Complaint: shortness of breath, chest pain - Related Data Home Medications Medication Instructions Recorded Confirmed Cpm/PE/Dm/Acetaminophen/Guaifn 1 tab PO ONCE PRN 03/30/21 03/30/21 [Tylenol Cold-Flu Day-Nt Caplet] Previous Rx's Medication Instructions Recorded HYDROcodone/APAP 7.5-325MG [[place] 1 tab PO Q4H PRN 3 Days #18 tab 04/03/21 7.5-325] Ibuprofen [Motrin] 600 mg PO Q8HR PRN #30 tab 04/03/21 Levofloxacin [Levaquin] 500 mg PO DAILY 7 Days #7 tab 04/03/21 metroNIDAZOLE [Flagyl] 500 mg PO TID #21 tab 04/03/21 Azithromycin [Zithromax Z-pack (6 250 mg PO DIRECTED 5 Days #6 tab 04/14/21 tabs)] Ibuprofen 800 mg PO Q6HR PRN #20 tablet 04/14/21 Allergies Allergy/AdvReac Type Severity Reaction Status Date / Time No Known Allergies Allergy Verified 04/14/21 13:30 Review of Systems ROS Statement: Those systems with pertinent positive or pertinent negative responses have been documented in the HPI. ROS Other: All systems not noted in ROS Statement are negative. Past Medical History Past Medical History: No Reported History History of Any Multi-Drug Resistant Organisms: None Reported Past Surgical History: No Surgical Hx Reported Past Anesthesia/Blood Transfusion Reactions: No Reported Reaction Past Psychological History: No Psychological Hx Reported Smoking Status: Never smoker Past Alcohol Use History: Occasional Past Drug Use History: Marijuana General Exam - General Exam Comments Initial Comments: This is a well-developed well-nourished awake alert oriented 3 male Limitations: no limitations General appearance: alert, in no apparent distress Head exam: Present: atraumatic, normocephalic, normal inspection Eye exam: Present: normal appearance, PERRL, EOMI. Absent: scleral icterus, conjunctival injection, periorbital swelling ENT exam: Present: normal exam, mucous membranes moist Neck exam: Present: normal inspection, full ROM, other (No stridor JVD or bruits). Absent: tenderness, meningismus, lymphadenopathy Respiratory exam: Present: normal lung sounds bilaterally. Absent: respiratory distress, wheezes, rales, rhonchi, stridor Cardiovascular Exam: Present: regular rate, normal rhythm, normal heart sounds. Absent: systolic murmur, diastolic murmur, rubs, gallop, clicks GI/Abdominal exam: Present: soft, normal bowel sounds. Absent: distended, tenderness, guarding, rebound, rigid Extremities exam: Present: normal inspection, full ROM, normal capillary refill. Absent: tenderness, pedal edema, joint swelling, calf tenderness Back exam: Present: normal inspection Neurological exam: Present: alert, oriented X3, CN II-XII intact Psychiatric exam: Present: normal affect, normal mood Skin exam: Present: warm, dry, intact, normal color. Absent: rash Course Vital Signs 04/14/21 04/14/21 13:27 15:39 Temperature 98.5 F Pulse Rate 87 78 Respiratory 18 18 Rate Blood Pressure 117/77 128/78 O2 Sat by Pulse 97 97 Oximetry Medical Decision Making - Medical Decision Making I did discuss findings with the patient's regarding findings the presentation is consistent with pleuritic chest pain and pneumonitis evidence of infiltrate on CAT scan To rule out patient be placed on IV antibiotics prior to discharge he will be discharged with oral antibiotics and NSAIDs. - Lab Data Result diagrams: 04/14/21 14:22 04/14/21 14:22 Lab Results 04/14/21 04/14/21 04/14/21 Range/Units 14:22 14:22 14:22 WBC 15.9 H (3.8-10.6) k/uL RBC 4.80 (4.30-5.90) m/uL Hgb 13.5 (13.0-17.5) gm/dL Hct 39.2 (39.0-53.0) % MCV 81.6 (80.0-100.0) fL MCH 28.1 (25.0-35.0) pg MCHC 34.5 (31.0-37.0) g/dL RDW 12.8 (11.5-15.5) % Plt Count 529 H D (150-450) k/uL MPV 6.8 Neutrophils % 75 % Lymphocytes % 16 % Monocytes % 6 % Eosinophils % 2 % Basophils % 1 % Neutrophils # 11.9 H (1.3-7.7) k/uL Lymphocytes # 2.5 (1.0-4.8) k/uL Monocytes # 0.9 (0-1.0) k/uL Eosinophils # 0.4 (0-0.7) k/uL Basophils # 0.1 (0-0.2) k/uL PT 10.9 (9.0-12.0) sec INR 1.0 (<1.2) APTT 24.7 (22.0-30.0) sec D-Dimer 5.01 H (<0.60) mg/L FEU Sodium 138 (137-145) mmol/L Potassium 4.4 (3.5-5.1) mmol/L Chloride 101 (98-107) mmol/L Carbon Dioxide 26 (22-30) mmol/L Anion Gap 11 mmol/L BUN 13 (9-20) mg/dL Creatinine 0.55 L (0.66-1.25) mg/dL Est GFR (CKD-EPI)AfAm >90 (>60 ml/min/1.73 sqM) Est GFR (CKD-EPI)NonAf >90 (>60 ml/min/1.73 sqM) Glucose 117 H (74-99) mg/dL Plasma Lactic Acid Frederic (0.7-2.0) mmol/L Calcium 9.2 (8.4-10.2) mg/dL Magnesium 1.9 (1.6-2.3) mg/dL Total Bilirubin 0.3 (0.2-1.3) mg/dL AST 22 (17-59) U/L ALT 26 (4-49) U/L Alkaline Phosphatase 74 (38-126) U/L Creatine Kinase 75 (55-170) U/L Troponin I (0.000-0.034) ng/mL NT-Pro-B Natriuret Pep pg/mL Total Protein 7.5 (6.3-8.2) g/dL Albumin 3.9 (3.5-5.0) g/dL 04/14/21 04/14/21 04/14/21 Range/Units 14:22 14:22 14:22 WBC (3.8-10.6) k/uL RBC (4.30-5.90) m/uL Hgb (13.0-17.5) gm/dL Hct (39.0-53.0) % MCV (80.0-100.0) fL MCH (25.0-35.0) pg MCHC (31.0-37.0) g/dL RDW (11.5-15.5) % Plt Count (150-450) k/uL MPV Neutrophils % % Lymphocytes % % Monocytes % % Eosinophils % % Basophils % % Neutrophils # (1.3-7.7) k/uL Lymphocytes # (1.0-4.8) k/uL Monocytes # (0-1.0) k/uL Eosinophils # (0-0.7) k/uL Basophils # (0-0.2) k/uL PT (9.0-12.0) sec INR (<1.2) APTT (22.0-30.0) sec D-Dimer (<0.60) mg/L FEU Sodium (137-145) mmol/L Potassium (3.5-5.1) mmol/L Chloride (98-107) mmol/L Carbon Dioxide (22-30) mmol/L Anion Gap mmol/L BUN (9-20) mg/dL Creatinine (0.66-1.25) mg/dL Est GFR (CKD-EPI)AfAm (>60 ml/min/1.73 sqM) Est GFR (CKD-EPI)NonAf (>60 ml/min/1.73 sqM) Glucose (74-99) mg/dL Plasma Lactic Acid Frederic 1.6 (0.7-2.0) mmol/L Calcium (8.4-10.2) mg/dL Magnesium (1.6-2.3) mg/dL Total Bilirubin (0.2-1.3) mg/dL AST (17-59) U/L ALT (4-49) U/L Alkaline Phosphatase (38-126) U/L Creatine Kinase (55-170) U/L Troponin I <0.012 (0.000-0.034) ng/mL NT-Pro-B Natriuret Pep 84 pg/mL Total Protein (6.3-8.2) g/dL Albumin (3.5-5.0) g/dL - EKG Data -: EKG Interpreted by Me EKG shows normal: sinus rhythm EKG Comments: Sinus rhythm a 73 para 166 QRS 98 QT since QTC 360/405 to QA changes - Radiology Data Radiology results: report reviewed (Imaging reviewed no evidence of PE small amount of fluid noted infiltrate considered), image reviewed Disposition Clinical Impression: Right lower lobe pneumonia, Pleurisy, Leukocytosis Disposition: HOME SELF-CARE Condition: Good Instructions (If sedation given, give patient instructions): Pleurisy (DC), Pneumonitis (ED), Bacterial Pneumonia (ED) Prescriptions: Ibuprofen 800 mg PO Q6HR PRN #20 tablet PRN Reason: Pain Azithromycin [Zithromax Z-pack (6 tabs)] 250 mg PO DIRECTED 5 Days #6 tab Is patient prescribed a controlled substance at d/c from ED?: No Referrals: Amber Botello MD [Primary Care Provider] - 1-2 days
[2021-04-14 14:35] LABS: Basophils # (A) 0.1 k/uL (0-0.2); Basophils % (A) 1 %; Eosinophils # (A) 0.4 k/uL (0-0.7); Eosinophils % (A) 2 %; HCT 39.2 % (39.0-53.0); HGB 13.5 gm/dL (13.0-17.5); Lymphocytes # (A) 2.5 k/uL (1.0-4.8); Lymphocytes % (A) 16 %; MCH 28.1 pg (25.0-35.0); MCHC 34.5 g/dL (31.0-37.0); MCV 81.6 fL (80.0-100.0); Mean Platelet Volume 6.8; Monocytes # (A) 0.9 k/uL (0-1.0); Monocytes % (A) 6 %; Neutrophils # (A) 11.9 k/uL (1.3-7.7); Neutrophils % (A) 75 %; RDW 12.8 % (11.5-15.5); WBC 15.9 k/uL (3.8-10.6)
--- NOTE | 2021-04-14 14:44 | XR ---
EXAMINATION TYPE: XR chest 2V DATE OF EXAM: 04/14/2021 COMPARISON: 04/10/2021. HISTORY: Right sided pain with difficulty breathing. TECHNIQUE: Frontal and lateral views of the chest are obtained. FINDINGS: There is residual minimal bibasilar streaky opacity. No pleural effusion, or pneumothorax seen. The cardiac silhouette size is within normal limits. The osseous structures are intact. IMPRESSION: Residual minimal bibasilar opacities, compatible with atelectasis.
[2021-04-14 14:47] LABS: Platelet Count 529 k/uL (150-450)
[2021-04-14 14:49] LABS: Partial Thromboplastin Time 24.7 sec (22.0-30.0); Prothrombin Time 10.9 sec (9.0-12.0)
[2021-04-14 14:54] LABS: ALT 26 U/L (4-49); AST 22 U/L (17-59); African American GFR (CKD) >90 (>60 ml/min/1.73 sqM); Albumin 3.9 g/dL (3.5-5.0); Alkaline Phosphatase 74 U/L (38-126); Anion Gap 11 mmol/L; Blood Urea Nitrogen 13 mg/dL (9-20); Calcium 9.2 mg/dL (8.4-10.2); Carbon Dioxide 26 mmol/L (22-30); Chloride 101 mmol/L (98-107); Creatine Kinase 75 U/L (55-170); Glucose 117 mg/dL (74-99); Magnesium 1.9 mg/dL (1.6-2.3); Non-African American GFR(CKD) >90 (>60 ml/min/1.73 sqM); Potassium 4.4 mmol/L (3.5-5.1); Sodium 138 mmol/L (137-145); Total Bilirubin 0.3 mg/dL (0.2-1.3); Total Protein 7.5 g/dL (6.3-8.2)
[2021-04-14 15:01] LABS: D-Dimer 5.01 mg/L FEU (<0.60)
--- NOTE | 2021-04-14 16:26 | CT ---
EXAMINATION TYPE: CT angio chest DATE OF EXAM: 04/14/2021 4:02 PM COMPARISON: Same-day radiograph. CT 04/01/2021. HISTORY: PE suspected. SOB, pain upon inhalation, back pain. Pt beared down during first study, pushi ng out contrast. Had to repeat. CT DLP: 913.7 mGycm Automated exposure control for dose reduction was used. CONTRAST: CTA scan of the thorax is performed with IV Contrast, patient injected with 148 mL of Isovue 370, pul monary embolism protocol. MIP images are created and reviewed. FINDINGS: LUNGS: There is small right pleural effusion with adjacent mild opacity. There is minimal opacity in the lingula with 5 mm nodule abutting the mediastinum. No pneumothorax seen. The tracheobronchial tr ee is patent. MEDIASTINUM: There is satisfactory enhancement of the pulmonary artery and its branches, there is no CT evidence for pulmonary embolism. There are no greater than 1 cm hilar or mediastinal lymph nodes. No pericardial effusion is seen. OTHER: No additional significant abnormality is seen. IMPRESSION: NO ACUTE PE. SMALL RIGHT PLEURAL EFFUSION WITH ADJACENT ATELECTASIS. SUPERIMPOSED INFILTRATE NOT EXCLUDED. Incidental small lingular nodule, nonspecific, may represent postinflammatory/infectious change. Dm mmend follow-up.
[2021-04-14] MEDS ORDERED: AZITHROMYCIN 500 MG TAB PO STA (17:02)
[2021-04-14] MEDS ORDERED: cefTRIAXone IN SWFI 1,000 MG/10 ML SYRINGE IVP STA (17:02)
[2021-04-14 17:25] VITALS: BP 134/78; PULSE 88; TEMP 98.9
== END 2021-04-14 17:24 | disposition home or self-care (01) ==
LOC: EC 13:26
DX: J18.1 Lobar pneumonia, unspecified organism (principal); F12.90 Cannabis use, unspecified, uncomplicated; Z79.1 Long term (current) use of non-steroidal anti-inflammatories (NSAID)
CPT/HCPCS: 36415; 93005; 85379; 83880; 80053; 82550; 83605; 83735; 84484; 85025; 85610; 85730; 71046; 71275; 99285; 96374; 96375; J0696; J1885; Q9967

== ENCOUNTER 2021-04-24 14:38 | Emergency (ER) | payer OTHER ==
[2021-04-24 14:42] VITALS: PULSE 74; RESP 18
--- NOTE | 2021-04-24 15:20 | ED ---
General Adult HPI - General Chief complaint: Recheck/Abnormal Lab/Rx Stated complaint: Pain when breathing Source: patient, family, RN notes reviewed, old records reviewed Mode of arrival: ambulatory Limitations: no limitations - History of Present Illness Initial comments: 30-year-old white male, presents to the emergency room with complaints of pain with deep inspiration. Patient was treated for pneumonia on April 14 with a Z- [place]yllan and finished therapy states that he feels better except for the pain with deep inspiration. Patient was not sure if the pneumonia was gone and his significant other wanted him reassessed. Patient's primary care doctor is Dr. Botello but he has not seen him. Patient denies any fevers, shortness of breath or productive cough. -: days(s) (10) Location: chest Radiation: non-radiation Severity scale (1-10): 2 Quality: other (rubbing) Consistency: intermittent Improves with: none Worsens with: other (deep breaths) Associated Symptoms: denies other symptoms Treatments Prior to Arrival: none - Related Data Home Medications Medication Instructions Recorded Confirmed Cpm/PE/Dm/Acetaminophen/Guaifn 1 tab PO ONCE PRN 03/30/21 03/30/21 [Tylenol Cold-Flu Day-Nt Caplet] Previous Rx's Medication Instructions Recorded HYDROcodone/APAP 7.5-325MG [[place] 1 tab PO Q4H PRN 3 Days #18 tab 04/03/21 7.5-325] Ibuprofen [Motrin] 600 mg PO Q8HR PRN #30 tab 04/03/21 Levofloxacin [Levaquin] 500 mg PO DAILY 7 Days #7 tab 04/03/21 metroNIDAZOLE [Flagyl] 500 mg PO TID #21 tab 04/03/21 Azithromycin [Zithromax Z-pack (6 250 mg PO DIRECTED 5 Days #6 tab 04/14/21 tabs)] Ibuprofen 800 mg PO Q6HR PRN #20 tablet 04/14/21 Allergies Allergy/AdvReac Type Severity Reaction Status Date / Time No Known Allergies Allergy Verified 04/24/21 14:42 Review of Systems ROS Statement: Those systems with pertinent positive or pertinent negative responses have been documented in the HPI. ROS Other: All systems not noted in ROS Statement are negative. Past Medical History Past Medical History: No Reported History History of Any Multi-Drug Resistant Organisms: None Reported Past Surgical History: No Surgical Hx Reported Past Anesthesia/Blood Transfusion Reactions: No Reported Reaction Past Psychological History: No Psychological Hx Reported Smoking Status: Never smoker Past Alcohol Use History: Occasional Past Drug Use History: Marijuana General Exam Limitations: no limitations General appearance: alert, in no apparent distress Head exam: Present: atraumatic, normocephalic, normal inspection Eye exam: Present: normal appearance, PERRL, EOMI. Absent: scleral icterus, conjunctival injection, periorbital swelling Pupils: Present: normal accommodation ENT exam: Present: normal exam, normal oropharynx, mucous membranes moist Neck exam: Present: normal inspection. Absent: tenderness, meningismus, lymphadenopathy Respiratory exam: Present: normal lung sounds bilaterally. Absent: respiratory distress, wheezes, rales, rhonchi, stridor, chest wall tenderness, accessory muscle use, decreased breath sounds, prolonged expiratory Cardiovascular Exam: Present: regular rate, normal rhythm, normal heart sounds. Absent: systolic murmur, diastolic murmur, rubs, gallop, clicks GI/Abdominal exam: Present: soft, normal bowel sounds. Absent: distended, tenderness, guarding, rebound, rigid Extremities exam: Present: normal inspection, full ROM, normal capillary refill. Absent: tenderness, pedal edema, joint swelling, calf tenderness Back exam: Present: normal inspection, full ROM. Absent: tenderness, CVA tenderness (R), CVA tenderness (L), muscle spasm, paraspinal tenderness, sahil tebral tenderness Neurological exam: Present: alert, oriented X3, CN II-XII intact Psychiatric exam: Present: normal affect, normal mood Skin exam: Present: warm, dry, intact, normal color. Absent: rash, cyanosis, diaphoretic, erythema, petechiae, pallor, mottled, abrasion Course Vital Signs 04/24/21 14:40 Temperature 98.8 F Pulse Rate 74 Respiratory 18 Rate Blood Pressure 124/74 O2 Sat by Pulse 96 Oximetry Medical Decision Making - Medical Decision Making Patient has no fevers, no shortness of breath, no productive cough. He was treated for pneumonia with a Z-Dyllan on April 14 and completed his dose. Patient states that he does feel better but still feels dry rubbing sensation when he takes deep breaths. Patient directed to take Motrin [id number] and increase fluid intake and follow-up with primary care doctor in [address] Cid was agreeable to this plan. Disposition Clinical Impression: Pleurisy Disposition: HOME SELF-CARE Condition: Good Instructions (If sedation given, give patient instructions): Pleurisy (ED) Additional Instructions: Increase your fluid intake, take Motrin as needed every 6-8 hours for pain. Follow-up with your primary care doctor in 1 week. Return to the emergency room with increasing shortness of breath, chest pain or fevers. Is patient prescribed a controlled substance at d/c from ED?: No Referrals: Amber Botello MD [Primary Care Provider] - 1-2 days Time of Disposition: 15:20
[2021-04-24 15:47] VITALS: BP 128/77; TEMP 98.6
== END 2021-04-24 15:47 | disposition home or self-care (01) ==
LOC: EC 14:38
DX: R09.1 Pleurisy (principal); F12.90 Cannabis use, unspecified, uncomplicated
CPT/HCPCS: 99284

== ENCOUNTER 2023-10-27 16:27 | Emergency (ER) | payer OTHER ==
[2023-10-27 16:37] VITALS: RESP 16
--- NOTE | 2023-10-27 16:58 | ED ---
General Adult HPI - General Chief complaint: Extremity Injury, Upper Stated complaint: right arm injury Time Seen by Provider: 10/27/23 16:36 Source: patient Mode of arrival: ambulatory Limitations: no limitations - History of Present Illness Initial comments: 3-year-old male presenting to the ED with a chief complaint of right arm/wrist injury. Patient states that he was milking a cow when she kicked back and her hoof kicked/pinned his right forearm arm between the hoof and a large metal pipe. Occurred at 9:30 AM. States he would like an x-ray to make sure nothing is broken. At this time, patient states pain is well controlled. No other injuries at this time. No other complaints. - Related Data Home Medications Medication Instructions Recorded Confirmed Cpm/PE/Dm/Acetaminophen/Guaifn 1 tab PO ONCE PRN 03/30/21 03/30/21 [Tylenol Cold-Flu Day-Nt Caplet] Previous Rx's Medication Instructions Recorded HYDROcodone/APAP 7.5-325MG [[place] 1 tab PO Q4H PRN 3 Days #18 tab 04/03/21 7.5-325] Ibuprofen [Motrin] 600 mg PO Q8HR PRN #30 tab 04/03/21 levoFLOXacin [Levaquin] 500 mg PO DAILY 7 Days #7 tab 04/03/21 metroNIDAZOLE [Flagyl] 500 mg PO TID #21 tab 04/03/21 Azithromycin [Zithromax Z-pack (6 250 mg PO DIRECTED 5 Days #6 tab 04/14/21 tabs)] Ibuprofen 800 mg PO Q6HR PRN #20 tablet 04/14/21 Allergies Allergy/AdvReac Type Severity Reaction Status Date / Time kiwi Allergy Unknown Verified 10/27/23 16:33 Review of Systems ROS Statement: Those systems with pertinent positive or pertinent negative responses have been documented in the HPI. ROS Other: All systems not noted in ROS Statement are negative. Past Medical History Past Medical History: No Reported History History of Any Multi-Drug Resistant Organisms: None Reported Past Surgical History: No Surgical Hx Reported Past Anesthesia/Blood Transfusion Reactions: No Reported Reaction Past Psychological History: No Psychological Hx Reported Smoking Status: Never smoker Past Alcohol Use History: Occasional Past Drug Use History: Marijuana General Exam Limitations: no limitations General appearance: alert, in no apparent distress Neck exam: Present: normal inspection Respiratory exam: Present: normal lung sounds bilaterally Cardiovascular Exam: Present: regular rate, normal rhythm GI/Abdominal exam: Present: soft Extremities exam: Present: other (X-rays and sensation equal and intact of bilateral upper extremities. Radial pulses 2+. Right arm has some tenderness to palpation proximal to the wrist however no obvious deformity, crepitus, step- off. No snuff box TTP.) Course Vital Signs 10/27/23 16:30 Temperature 98.8 F Pulse Rate 66 Respiratory 16 Rate Blood Pressure 140/77 O2 Sat by Pulse 100 Oximetry Medical Decision Making - Medical Decision Making Was pt. sent in by a medical professional or institution (, PA, CUSTOMER RESOURCE SPECIALIST, urgent care, hospital, or fci...) When possible be specific @ -No Did you speak to anyone other than the patient for history (EMS, parent, family, police, friend...)? What history was obtained from this source @ -No Did you review nursing and triage notes (agree or disagree)? Why? @ -I reviewed and agree with nursing and triage notes Were old charts reviewed (outside hosp., previous admission, EMS record, old EKG, old radiological studies, urgent care reports/EKG's, fci records)? Report findings @ -No old charts were reviewed Differential Diagnosis (chest pain, altered mental status, abdominal pain women, abdominal pain men, vaginal bleeding, weakness, fever, dyspnea, syncope, headache, dizziness, GI bleed, back pain, seizure, CVA, palpatations, mental health, musculoskeletal)? @ -Differential Musculoskeletal Muscular strain, contusion, ligament sprain, fracture, arthritis, septic arthritis, bursitis, cellulitis, muscle spasm, nerve compression, DVT, arterial occlusion, herpes zoster, electrolyte abnormality, tumor.... This is not meant to be in all inclusive list EKG interpreted by me (3pts min.). @ -As above X-rays interpreted by me (1pt min.). @ -X-ray of the right wrist interpreted by me show no evidence of fracture or other acute finding. CT interpreted by me (1pt min.). @ -None done U/S interpreted by me (1pt. min.). @ -None done What testing was considered but not performed or refused? (CT, X-rays, U/S, labs)? Why? @ -None What meds were considered but not given or refused? Why? @ -None Did you discuss the management of the patient with other professionals (professionals i.e. , PA, CUSTOMER RESOURCE SPECIALIST, lab, RT, psych nurse, social services specialist, elevator conductor, teacher, state patrol officer, case management assistant)? Give summary @ -No Was smoking cessation discussed for >3mins.? @ -No Was critical care preformed (if so, how long)? @ -No Were there social determinants of health that impacted care today? How? (Homelessness, low income, unemployed, alcoholism, drug addiction, transportation, low edu. Level, literacy, decrease access to med. care, prison, rehab)? @ -No Was there de-escalation of care discussed even if they declined (Discuss DNR or withdrawal of care, Hospice)? DNR status @ -No What co-morbidities impacted this encounter? (DM, HTN, Smoking, COPD, CAD, Cancer, CVA, ARF, Chemo, Hep., AIDS, mental health diagnosis, sleep apnea, morbid obesity)? @ -None Was patient admitted / discharged? Hospital course, mention meds given and route, prescriptions, significant lab abnormalities, going to OR and other pertinent info. @ -Discharge 33-year-old male presenting to the ED with concerns of right forearm injury after being kicked by a cow, Imaging studies at this time show no evidence of fracture or other acute finding. Patient was offered analgesia however at this time deferred. Discharged home in stable condition. Undiagnosed new problem with uncertain prognosis? @ -No Drug Therapy requiring intensive monitoring for toxicity (Heparin, Nitro, Insulin, Cardizem)? @ -No Were any procedures done? @ -No Diagnosis/symptom? @ -Right forearm pain s/p encounter w/ cow Acute, or Chronic, or Acute on Chronic? @ -Acute Uncomplicated (without systemic symptoms) or Complicated (systemic symptoms)? @ -Uncomplicated Side effects of treatment? @ -No Exacerbation, Progression, or Severe Exacerbation? @ -No Poses a threat to life or bodily function? How? (Chest pain, [place], [place], pneumonia, PE, COPD, DKA, ARF, appy, cholecystitis, CVA, Diverticulitis, Homicidal, Suicidal, threat to staff... and all critical care pts) @ -No Disposition Clinical Impression: Right forearm pain, Struck by cow, initial encounter Disposition: HOME SELF-CARE Condition: Good Additional Instructions: Please return to the Emergency Department if symptoms worsen or any other concerns. Follow up with your primary care provider. Is patient prescribed a controlled substance at d/c from ED?: No Referrals: Amber Botello MD [Primary Care Provider] - 1-2 days Time of Disposition: 18:17
--- NOTE | 2023-10-27 18:03 | XR ---
EXAMINATION TYPE: XR wrist complete RT DATE OF EXAM: 10/27/2023 5:26 PM CLINICAL INDICATION:Male, 33 years old with history of kicked by cow pinned b/t metal pipe proximal; COMPARISON: None TECHNIQUE: XR wrist complete RT; examined in the Frontal, navicular, lateral, and oblique. FINDINGS: No acute osseous pathology, joint dislocation, or joint effusion. No evidence of any soft tissue swelling is seen. IMPRESSION: No acute osseous pathology.
[2023-10-27 18:28] VITALS: BP 137/76; PULSE 74; TEMP 97.9
== END 2023-10-27 18:27 | disposition home or self-care (01) ==
LOC: EC 16:27
DX: M79.631 Pain in right forearm (principal); F12.90 Cannabis use, unspecified, uncomplicated; Z91.018 Allergy to other foods; W55.22XA Struck by cow, initial encounter; Y93.K2 Activity, milking an animal
CPT/HCPCS: 99283